=== PATIENT | male | born 1980 | race Caucasian/White ===

== ENCOUNTER → 2017-06-07 | Outpatient (REF) ==
--- NOTE | 2017-06-07 15:44 | Diagnostic Imaging Report ---
INDICATION: Right shoulder injury and pain. TIME OF EXAM: 03:47 p.m. FINDINGS: Three views of the right shoulder were obtained. The glenohumeral and acromioclavicular alignment is normal. The acromiohumeral space is normal. No fracture or dislocation is seen. IMPRESSION: No acute bony abnormality is detected. Dictated by: Dictated on workstation # [id number]
--- NOTE | 2017-06-07 15:49 | Diagnostic Imaging Report ---
CLINICAL INDICATION: Patient was at work and strained his neck. EXAM: X-ray of the cervical spine, 3 views. COMPARISON: None. FINDINGS: There is no acute fracture or dislocation. There is straightening of the mid cervical spine posture. There is no significant prevertebral soft tissue swelling. The intervertebral disc heights are well maintained. The odontoid views are unremarkable. There is no significant degenerative change. IMPRESSION: 1. There is no acute fracture or dislocation. 2. There is straightening of the cervical spine posture. 3. Otherwise, unremarkable x-ray of the cervical spine. Dictated by: Dictated on workstation # [id number]
== END | disposition home or self-care (01) ==
LOC: OCC 14:52
PROVIDERS: ATTEND Family Medicine
CPT/HCPCS: 72040; 73030

== ENCOUNTER → 2017-06-11 | Outpatient (REF) | payer SELFPAY | LOC: RAD 08:01 | PROVIDERS: ATTEND Nurse Practitioner Family | DX: Z53.8 Procedure and treatment not carried out for other reasons (principal); M25.511 Pain in right shoulder ==

== ENCOUNTER 2020-05-07 19:57 | Emergency (ER) | payer SELFPAY ==
[~2020-05-07] VITALS: Ht 175.2 cm; Wt 107.5 kg
[2020-05-07 20:00] VITALS: BP 127/80
--- NOTE | 2020-05-07 20:20 | ED GI ---
General Chief Complaint: Abdominal/GI Problems Stated Complaint: CONSTIPATION History of Present Illness Date Seen by Provider: May 07, 2020 Time Seen by Provider: 20:05 Initial Comments 39-year-old male presents with complaint of constipation for the past 3 days. States he was on pain medication until a week ago when it was discontinued and since then he has not had a good bowel movement. Started MiraLAX 3 days ago, but only took it once, none since then. He has had a few small bowel movements, he states he just feels like he has to go more. Is having some abdominal cramping and gas without significant pain. Denies any nausea vomiting, appetite is normal. Denies fever or chills. Allergies and Home Medications Allergies Coded Allergies: No Known Drug Allergies (Unverified , 05/07/20) Patient Home Medication List Home Medication List Reviewed: Yes Review of Systems Review of Systems Constitutional: No fever, No malaise, No weakness Respiratory: Denies Cough, Denies Shortness of Air Cardiovascular: Denies Chest Pain, Denies Edema, Denies Syncope Gastrointestinal: See HPI; Denies Abdomen Distended, Denies Abdominal Pain; Constipated; Denies Nausea, Denies Poor Appetite, Denies Vomiting Genitourinary: Denies Frequency, Denies Flank Pain, Denies Hematuria Musculoskeletal: No back pain, No joint pain Skin: No change in color, No rash Past Cqldael-Izyqrp-Xhpqrr Hx Patient Social History Recent Foreign Travel: No Contact w/Someone Who Travel: No Recent Hopitalizations: No Physical Abuse: No Sexual Abuse: No Seasonal Allergies Seasonal Allergies: No Past Medical History Surgeries: Yes Orthopedic Respiratory: No Cardiac: No Neurological: No Genitourinary: No Gastrointestinal: No Musculoskeletal: No Endocrine: No HEENT: No Cancer: No Psychosocial: No Integumentary: No Blood Disorders: No Physical Exam Vital Signs Vital Signs - First Documented 05/07/20 20:00 Temp 36.8 Pulse 86 Resp 14 B/P (MAP) 127/80 (96) Pulse Ox 99 O2 Delivery Room Air Capillary Refill : Height/Weight/BMI Height: '" Weight: lbs. oz. kg; BMI Method: General Appearance: WD/WN, no apparent distress Respiratory: chest non-tender, lungs clear Cardiovascular: regular rate, rhythm, no edema Gastrointestinal: normal bowel sounds, non tender, soft, no organomegaly, no pulsatile mass Back: normal inspection, no CVA tenderness Progress/Results/Core Measures Results/Orders My Orders Orders - CANDICE ENRIQUEZ DO Magnesium Citrate Oral Soln (Citrate Of (05/07/20 20:30) Vital Signs/I&O 05/07/20 20:00 Temp 36.8 Pulse 86 Resp 14 B/P (MAP) 127/80 (96) Pulse Ox 99 O2 Delivery Room Air Progress Progress Note : Progress Note Abdominal exam, rather benign, soft without rebound or guarding. Positive bowel sounds all 4 quadrants. Departure Impression Primary Impression: Constipation Qualified Codes: K59.00 - Constipation, unspecified Disposition: HOME, SELF-CARE Condition: Stable Departure-Patient Inst. Decision time for Depature: 20:16 Referrals: [facility] [place] (PCP/Family) Primary Care Physician Patient Instructions: Constipation, Adult (DC), High Fiber Diet Add. Discharge Instructions: Continue taking daily Miralax until you are having soft stool. You may repeat the magnesium citrate in 2 to 3 days if you have not had a large volume of stool. Consider giving yourself an enema in 3 days if not having a large stool. Call or see your doctor next week for any further problems related to constipation. Return to the ER for severe abdominal pain. All discharge instructions reviewed with patient and/or family. Voiced understanding. CANDICE ENRIQUEZ DO May 07, 2020 20:19
[2020-05-07] MEDS ORDERED: MAGNESIUM CITRATE 300 ML BTL PO ONE (20:30)
== END 2020-05-07 20:39 | disposition home or self-care (01) ==
LOC: EDUNIT# 19:57 → ER FS 19:58
DX: K59.00 Constipation, unspecified (principal)
CPT/HCPCS: 99283

== ENCOUNTER 2020-07-18 17:45 | Emergency (ER) | payer SELFPAY ==
[~2020-07-18] VITALS: Ht 177.8 cm; Wt 105.6 kg
[2020-07-18 18:12] LABS: BASOPHILS # (AUTO) 0.1 10^3/uL (0.0-0.1); BASOPHILS % (AUTO) 0 % (0-10); EOSINOPHILS # (AUTO) 0.1 10^3/uL (0.0-0.3); EOSINOPHILS % (AUTO) 1 % (0-10); HEMATOCRIT 48 % (40-54); HEMOGLOBIN 16.5 G/DL (13.3-17.7); LYMPHOCYTES # (AUTO) 2.2 X 10^3 (1.0-4.0); LYMPHOCYTES % (AUTO) 16 % (12-44); MEAN CORPUSCULAR HEMOGLOBIN 30 PG (25-34); MEAN CORPUSCULAR HGB CONC 35 G/DL (32-36); MEAN CORPUSCULAR VOLUME 87 FL (80-99); MEAN PLATELET VOLUME 10.8 FL (7.4-10.4); MONOCYTES # (AUTO) 0.7 X 10^3 (0.0-1.0); MONOCYTES % (AUTO) 5 % (0-12); NEUTROPHILS # (AUTO) 10.4 X 10^3 (1.8-7.8); NEUTROPHILS % (AUTO) 77 % (42-75); PLATELET COUNT 300 10^3/uL (130-400); WHITE BLOOD COUNT 13.6 10^3/uL (4.3-11.0)
[2020-07-18] MEDS ORDERED: KETOROLAC 30 MG/ML VIAL IVP STA (18:12)
[2020-07-18] MEDS ORDERED: NS IV 1000 ML 1,000 ML IV STA (18:12)
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
--- NOTE | 2020-07-18 18:24 | Diagnostic Imaging Report ---
INDICATION: short of breath, chest pain. TECHNIQUE: Single view chest 6:08 PM. CORRELATION STUDY: None FINDINGS: Heart size borderline. Vasculature within normal limits. The lungs are clear with no consolidating infiltrate. There is no significant effusion or pneumothorax. IMPRESSION: 1. Negative for acute abnormality of the chest. Dictated by: Dictated on workstation # [id number]
[2020-07-18 18:25] LABS: PROTHROMBIN TIME PATIENT 13.5 SEC (12.2-14.7)
[2020-07-18 18:33] LABS: ALANINE AMINOTRANSFERASE 14 U/L (0-55); ALBUMIN 4.4 GM/DL (3.2-4.5); ALKALINE PHOSPHATASE 74 U/L (40-136); BILIRUBIN,TOTAL 0.3 MG/DL (0.1-1.0); BUN/CREATININE RATIO 11; CALCIUM 9.5 MG/DL (8.5-10.1); CARBON DIOXIDE 24 MMOL/L (21-32); CHLORIDE 104 MMOL/L (98-107); CREATININE SERUM 0.94 MG/DL (0.60-1.30); GFR ESTIMATED > 60; GLUCOSE 100 MG/DL (70-105); POTASSIUM 3.8 MMOL/L (3.6-5.0); SODIUM 140 MMOL/L (135-145); TOTAL PROTEIN 7.1 GM/DL (6.4-8.2)
[2020-07-18] MEDS ORDERED: LORazepam INJ 2 MG/ML (ATIVAN) VIAL IVP STA (18:54)
[2020-07-18] MEDS ORDERED: methylPREDNISolone 125 MG (Solu-MEDROL) VIAL IVP STA (18:54)
[2020-07-18] MEDS ORDERED: AZITHROMYCIN 250 MG TAB (ZITHROMAX) PO STA (18:54)
[2020-07-18] MEDS ORDERED: AZIT250T12 PO (18:57)
[2020-07-18] MEDS ORDERED: PRD20T PO (18:57)
[2020-07-18] MEDS ORDERED: BACL10TA PO (18:57)
[2020-07-18 19:08] VITALS: BP 134/81
== END 2020-07-18 19:15 | disposition home or self-care (01) ==
LOC: EDUNIT# 17:45 → ER FS 17:47
DX: J22 Unspecified acute lower respiratory infection (principal); F17.200 Nicotine dependence, unspecified, uncomplicated; Z87.01 Personal history of pneumonia (recurrent); Z79.52 Long term (current) use of systemic steroids
CPT/HCPCS: 36415; 71045; 80053; 83605; 84484; 85025; 85610; 85730; 86141; 87040; 93041

== ENCOUNTER 2022-07-27 21:38 | Emergency (ER) | payer SELFPAY ==
[~2022-07-27] VITALS: Ht 180 cm; Wt 90.7 kg
[~2022-07-27 21:38] MED LIST: AZIT250T12 PO; BACL10TA PO; PRD20T PO
--- NOTE | 2022-07-27 21:48 | ED Psychosocial ---
General Chief Complaint: Psych/Social Disorder Stated Complaint: ANXIETY ATTACK History of Present Illness Date Seen by Provider: Jul 27, 2022 Time Seen by Provider: 21:40 Initial Comments 42-year-old male is here with complaints of having a panic/anxiety attack at home, and called EMS immediately. Patient stated that he felt extreme anxiety and has been feeling like this all day since his brother in his sleep last night. Patient has not had anything to eat or drink all day except for a donut in the morning. Patient started having increasing intensity of anxiety associated with a little bit of lightheadedness and nausea. Patient also states that he has been a little bit constipated over the past couple of days and has had hard stools. Denies abdominal pain, fever and chills, respiratory symptoms, chest pain. Allergies and Home Medications Allergies Coded Allergies: No Known Drug Allergies (Unverified , 05/07/20) Patient Home Medication List Home Medication List Reviewed: Yes Azithromycin (Azithromycin) 250 Mg Tablet, 250 MG PO DAILY Prescribed by: GENESIS CARIAS on 07/18/201856 Baclofen (Baclofen) 10 Mg Tablet, 10 MG PO TID PRN for MUSCLE SPASMS Prescribed by: GENESIS CARIAS on 07/18/201856 Prednisone (Prednisone) 20 Mg Tab, 40 MG PO DAILY Prescribed by: GENESIS CARIAS on 07/18/201856 Review of Systems Constitutional: no symptoms reported EENTM: no symptoms reported Respiratory: no symptoms reported Cardiovascular: no symptoms reported Gastrointestinal: constipation, nausea Genitourinary: no symptoms reported Musculoskeletal: no symptoms reported Skin: no symptoms reported Psychiatric/Neurological: See HPI, Anxiety, Emotional Problems Past Tjoeeli-Idkwsh-Bbjhym Hx Seasonal Allergies Seasonal Allergies: No Past Medical History Surgeries: Yes Orthopedic Respiratory: No Cardiac: No Neurological: No Genitourinary: No Gastrointestinal: No Musculoskeletal: No Endocrine: No HEENT: No Cancer: No Psychosocial: No Integumentary: No Blood Disorders: No Physical Exam Vital Signs - First Documented 07/27/22 21:42 Temp 37.8 Pulse 87 Resp 16 B/P (MAP) 134/83 (100) Pulse Ox 100 O2 Delivery Room Air Capillary Refill : Height, Weight, BMI Height: '" Weight: lbs. oz. kg; 33.00 BMI Method: General Appearance: WD/WN, moderate distress HEENT: PERRL/EOMI, normal ENT inspection Neck: full range of motion Respiratory: lungs clear, normal breath sounds Cardiovascular: regular rate, rhythm Gastrointestinal: normal bowel sounds, non tender, soft (No distention) Neurologic/Psychiatric: alert, oriented x 3, other (Patient is having extreme anxiety and feels sad and grieving his brother) Appearance/Memory: appropriate appearance Behavior/Eye Contact: cooperative, good eye contact Thoughts/Hallucinations: normal thought pattern Skin: normal color Lymphatic: no adenopathy Progress/Results/Core Measures Results/Orders My Orders Orders - DUC NEWMAN MD Ondansetron Injection (Zofran Injectio (07/27/22 22:00) Lorazepam Injection (Ativan Injection) (07/27/22 21:57) Docusate Sodium Capsule (Colace Capsule) (07/27/22 22:00) Polyethylene Glycol Powder Pkt (Miralax (07/27/22 22:00) Vital Signs/I&O 07/27/22 21:42 Temp 37.8 Pulse 87 Resp 16 B/P (MAP) 134/83 (100) Pulse Ox 100 O2 Delivery Room Air Progress Progress Note : Progress Note 1. ANXIETY ATTACK/ BEREAVEMENT: - Ativan 0.5mg iv/ Zofran 4mg iv STAT - NS IVF bolus STAT - Pt has not been eating or drinking all day long due to loss of appetite due to a in the family last night, and feels dehydrated as well -Prescription for Ativan 0.5 mg to be taken for an anxiety attack, only 2 tablets prescribed -Follow-up with PCP/psychiatry in the next 7 days 2. CONSTIPATION: - Miralax STAT -Advised patient to increase water intake and advised high-fiber diet -Colace prescription given. No Colace available in the ER -No concerns for obstruction since patient's abdomen is soft, bowel sounds are heard. Departure Impression Primary Impression: Anxiety attack Additional Impression: Constipation Disposition: 01 HOME, SELF-CARE Condition: Improved Departure-Patient Inst. Referrals: [facility] (PCP/Family) Primary Care Physician Patient Instructions: Constipation, Adult (DC), Panic Attack ED, Tips to Help [facility] in Uncertain Times, Panic Disorder Add. Discharge Instructions: -Follow-up with PCP/psychiatry in the next 7 days -Advised patient to increase water intake and advised high-fiber diet - Colace prescription given and to be taken 3 times a day. It is a stool softener. Stop using it once stool is soft - Prescription for Ativan, 2 tablets, to be taken 8 hours apart, only for severe panic attack. All discharge instructions reviewed with patient and/or family. Voiced understanding. Scripts Lorazepam (Ativan) 0.5 Mg Tablet 0.5 MG PO Q8H PRN for ANXIETY for 2 Days, #2 TAB Prov: DUC NEWMAN MD 07/27/22 Docusate Sodium (Colace) 100 Mg Capsule 100 MG PO TID for 7 Days, #21 CAP Prov: DUC NEWMAN MD 07/27/22 DUC NEWMAN MD Jul 27, 2022 21:48
[2022-07-27] MEDS ORDERED: LORazepam INJ 2 MG/ML (ATIVAN) VIAL IVP STA (21:57)
[2022-07-27] MEDS ORDERED: polyethylene glycoL POWDER 17 GM (MIRALAX) PACK PO ONE (22:00)
[2022-07-27] MEDS ORDERED: ONDANSETRON 4 MG/2 ML (SDV) Z0FRAN IVP ONE (22:00)
[2022-07-27] MEDS ORDERED: NS IV 1000 ML 1,000 ML IV SCH (22:00)
[2022-07-27] MEDS ORDERED: DOCUSATE SODIUM 100 MG (COLACE) CAP PO ONE (22:00)
[2022-07-27] MEDS ORDERED: DOCU-143 PO (22:10)
[2022-07-27] MEDS ORDERED: LORA-404 PO (22:10)
[2022-07-27] MEDS ORDERED: SENNA W/DOCUSATE (SENOKOT S) TABLET PO ONE (22:15)
[2022-07-27 22:40] VITALS: BP 134/83
== END 2022-07-27 22:40 | disposition home or self-care (01) ==
LOC: EDUNIT# 21:38 → ER FS 21:40
DX: F41.9 Anxiety disorder, unspecified (principal); K59.00 Constipation, unspecified; Z28.310 Unvaccinated for COVID-19
CPT/HCPCS: 99283

== ENCOUNTER 2022-12-17 17:05 | Emergency (ER) | payer SELFPAY ==
[~2022-12-17] VITALS: Ht 180 cm; Wt 90.7 kg
[~2022-12-17 17:05] MED LIST changes: +DOCU-143 PO; +LORA-404 PO
[2022-12-17] MEDS ORDERED: KETOROLAC INJ 15 MG/ML VIAL IVP STA (17:21)
[2022-12-17] MEDS ORDERED: NS IV 1000 ML 1,000 ML IV STA (17:21)
--- NOTE | 2022-12-17 17:28 | ED Chest Pain ---
General Chief Complaint: Chest Pain Stated Complaint: CHEST PAIN Source: patient, EMS History of Present Illness Date Seen by Provider: Dec 17, 2022 Time Seen by Provider: 17:05 Initial Comments 42-year-old male presenting by EMS with complaints of left-sided sharp chest pain. This started 20 to 30 minutes prior to arrival. He states that he was trying to go to work when the pain started and so he decided to come to the emergency department. However as he was driving here he started feeling worse and was getting numbness and tingling into his left arm so they stopped and called EMS. He states he has had similar pain once and symptoms in the past that was related to anxiety. He also has a tender to palpation area on the left upper chest wall that he thinks may be from a muscle strain since he does heavy lifting at work. He denies having nausea, vomiting, shortness of breath, abdominal pain. He has had no fever or chills. Timing/Duration: 1/2 hour Severity/Quality: moderate, sharp Radiation: no radiation Prior CP/Workup: non-cardiac Modifying Factors: worse with exercise ASA po DIRECTOR OF CONSUMER MARKETING: No NTG SL DIRECTOR OF CONSUMER MARKETING: No Associated Symptoms: No abdominal pain, No back pain, No diaphoresis, No dizziness, No edema, No fatigue, No fever/chills, No headache, No heartburn, No nausea/vomiting, No rash, No shortness of breath, No swelling/lump in chest, No syncope, No weakness Allergies and Home Medications Allergies Coded Allergies: No Known Drug Allergies (Unverified , 05/07/20) Patient Home Medication List Home Medication List Reviewed: Yes Azithromycin (Azithromycin) 250 Mg Tablet, 250 MG PO DAILY Prescribed by: GENESIS CARIAS on 07/18/201856 Baclofen (Baclofen) 10 Mg Tablet, 10 MG PO TID PRN for MUSCLE SPASMS Prescribed by: GENESIS CARIAS on 07/18/201856 Docusate Sodium (Colace) 100 Mg Capsule, 100 MG PO TID Prescribed by: DUC NEWMAN MD on 07/27/222209 Lorazepam (Ativan) 0.5 Mg Tablet, 0.5 MG PO Q8H PRN for ANXIETY Prescribed by: GENESIS CARIAS on 12/17/22 180 Prednisone (Prednisone) 20 Mg Tab, 40 MG PO DAILY Prescribed by: GENESIS CARIAS on 07/18/20 1857 Review of Systems Review of Systems Constitutional: No chills, No fever EENTM: No Symptoms Reported Respiratory: Denies Cough, Denies Shortness of Air Cardiovascular: Chest Pain (Sharp left upper chest wall pain with palpation. He was having sharp pains in his chest and numbness into his left arm.) Gastrointestinal: No Symptoms Reported Genitourinary: No Symptoms Reported Musculoskeletal: no symptoms reported Skin: no symptoms reported Psychiatric/Neurological: Anxiety Past Hjcxrwd-Fpxliv-Dgkzfx Hx Patient Social History Tobacco Use?: No Use of E-Cig and/or Vaping dev: No Substance use?: No Alcohol Use?: No Pt feels they are or have been: No Seasonal Allergies Seasonal Allergies: No Past Medical History Surgery/Hospitalization HX: Anxiety Surgeries: Yes Orthopedic Respiratory: No Cardiac: No Neurological: No Genitourinary: No Gastrointestinal: No Musculoskeletal: No Endocrine: No HEENT: No Cancer: No Psychosocial: No Integumentary: No Blood Disorders: No Physical Exam Vital Signs Vital Signs - First Documented 12/17/22 17:05 Temp 37.0 Pulse 77 Resp 16 B/P (MAP) 124/76 (92) Pulse Ox 100 Capillary Refill : Less Than 3 Seconds Height, Weight, BMI Height: '" Weight: lbs. oz. kg; 27.00 BMI Method: General Appearance: No Apparent Distress, WD/WN Respiratory: No Chest Non Tender (Tender to palpation on the left upper chest wall); Lungs Clear, Normal Breath Sounds, No Accessory Muscle Use, No Respiratory Distress Cardiovascular: Regular Rate, Rhythm, Normal Peripheral Pulses Gastrointestinal: Normal Bowel Sounds, No Pulsatile Mass, Non Tender, Soft Rectal: Deferred Extremity: Normal Capillary Refill, Normal Inspection, No Pedal Edema Neurologic/Psychiatric: Alert, Oriented x3, speech pathology teacher II-XII Norm as Tested Skin: Normal Color, Warm/Dry Progress/Results/Core Measures Results/Orders Lab Results Laboratory Tests Test 12/17/22 17:18 12/17/22 17:47 Range/Units Prothrombin Time 15.6 H 12.2-14.7 SEC INR Comment 1.2 0.8-1.4 Activated Partial Thromboplast Time 21 L 24-35 SEC Sodium Level 137 135-145 MMOL/L Potassium Level 3.5 L 3.6-5.0 MMOL/L Chloride Level 104 98-107 MMOL/L Carbon Dioxide Level 23 21-32 MMOL/L Anion Gap 10 5-14 MMOL/L Blood Urea Nitrogen 11 7-18 MG/DL Creatinine 0.88 0.60-1.30 MG/DL Estimat Glomerular Filtration Rate 110 BUN/Creatinine Ratio 13 Glucose Level 97 70-105 MG/DL Calcium Level 9.7 8.5-10.1 MG/DL Corrected Calcium 9.5 8.5-10.1 MG/DL Magnesium Level 2.0 1.6-2.4 MG/DL Total Bilirubin 0.4 0.1-1.0 MG/DL Aspartate Amino Transf (AST/SGOT) 28 5-34 U/L Alanine Aminotransferase (ALT/SGPT) 11 0-55 U/L Alkaline Phosphatase 48 40-136 U/L Troponin I < 0.30 <0.30 NG/ML Pro-B-Type Natriuretic Peptide < 36.0 <125.0 PG/ML Total Protein 6.4 6.4-8.2 GM/DL Albumin 4.2 3.2-4.5 GM/DL White Blood Count 7.9 4.3-11.0 10^3/uL Red Blood Count 4.39 4.30-5.52 10^6/uL Hemoglobin 13.4 13.3-17.7 g/dL Hematocrit 39 L 40-54 % Mean Corpuscular Volume 88 80-99 fL Mean Corpuscular Hemoglobin 31 25-34 pg Mean Corpuscular Hemoglobin Concent 35 32-36 g/dL Red Cell Distribution Width 12.6 10.0-14.5 % Platelet Count 208 130-400 10^3/uL Mean Platelet Volume 10.3 9.0-12.2 fL Immature Granulocyte % (Auto) 0 % Neutrophils (%) (Auto) 71 42-75 % Lymphocytes (%) (Auto) 22 12-44 % Monocytes (%) (Auto) 6 0-12 % Eosinophils (%) (Auto) 1 0-10 % Basophils (%) (Auto) 0 0-10 % Neutrophils # (Auto) 5.6 1.8-7.8 10^3/uL Lymphocytes # (Auto) 1.7 1.0-4.0 10^3/uL Monocytes # (Auto) 0.5 0.0-1.0 10^3/uL Eosinophils # (Auto) 0.1 0.0-0.3 10^3/uL Basophils # (Auto) 0.0 0.0-0.1 10^3/uL Immature Granulocyte # (Auto) 0.0 0.0-0.1 10^3/uL My Orders Orders - GENESIS CARIAS MD Cbc With Automated Diff (12/17/22 17:21) Magnesium (12/17/22 17:21) Chest 1 View Ap/Pa Only (12/17/22 17:21) Ekg Tracing (12/17/22:) Comprehensive Metabolic Panel (12/17/22:) Protime With Inr (12/17/22:) Partial Thromboplastin Time (12/17/22:) O2 (12/17/22:) Monitor-Rhythm Ecg Trace Only (12/17/22:21) Ed Iv/Invasive Line Start (12/17/22 17:21) Troponin I Fs (12/17/22 17:) Probnp Fs (12/17/22:) Ketorolac Injection (Ketorolac Injection (12/17/22 17:21) Ns Iv 1000 Ml (Sodium Chloride 0.9%) (12/17/22 17:21) Vital Signs/I&O 12/17/22 12/17/22 17:05 18:10 Temp 37.0 37.0 Pulse 77 72 Resp 16 18 B/P (MAP) 124/76 (92) 122/76 Pulse Ox 100 100 Blood Pressure Mean: 92 Progress Progress Note #1: Progress Note Potential diagnosis of anxiety, musculoskeletal chest wall pain, pneumonia, myocardial infarction. Obtain peripheral IV access and send labs for complete blood count, comprehensive metabolic profile, pro time, PTT, troponin, proBNP, magnesium. 1 view chest x-ray to evaluate for pathology in his chest. Normal saline 1 L IV fluid bolus for hydration, Toradol 15 mg IV for his sharp reproducible chest w all pain. Placed on cardiac nuclear monitoring technician and initially interpretation is he has a sinus rhythm with a heart rate in the 80s. Obtain electrocardiogram for further evaluation of his heart rate and rhythm and looking for ischemia. 1714 electrocardiogram shows sinus rhythm without ST elevation or ischemia. Progress Note #2: Progress Note His comprehensive metabolic profile with some hemolysis so the potassium is elevated falsely due to this. Otherwise his overall comprehensive metabolic panel did not show any acute electrolyte abnormality to account for his complaint of chest pain. He reports that his chest pain resolved other than the muscle chest wall pain that has been present for several days. His complete blood count does not show elevated white count for infection or signs of anemia. Reassured patient and counseled on follow-up and return precautions. He advised that he felt like a lot of this was anxiety and had seen improvement when he took the Ativan 0.5 mg up to 3 times a day as prescribed in July from an ER visit. I advised him that I could write for a few of these pills again and that he needed to follow-up with the clinic and they may need to consider additional medicine or other therapies to try and help with his anxiety and stress. Also given a note to be off work until Tuesday as he was stating that he felt like work was a stressor that was contributing to his symptoms. Initial ECG Impression Date: Dec 17, 2022 Initial ECG Impression Time: 17:12 Initial ECG Rate: 69 Initial ECG Rhythm: Normal Sinus Initial ECG Comparisson: Unchanged Comment My personal interpretation and review his electrocardiogram shows a normal sinus rhythm with a heart rate of 69 bpm. CA interval 167 ms. QT interval 338 ms with a QTc interval 358 ms. He has no acute ST elevation. Overall appears similar to tracing from July 18, 2020. Diagnostic Imaging Diagonstic Imaging: Xray Plain Films/CT/US/NM/MRI: chest Comments [facility]. [place], [place] NAME: SHIKHA TINEO MED REC#: [id number] PT STATUS: DEP ER : 1980 PHYSICIAN: GENESIS CARIAS MD ADMIT DATE: 12/17/22/ER FS Signed Date of Exam:12/17/22 CHEST 1 VIEW AP/PA ONLY EXAM: Chest 1 view AP/PA only INDICATION: Left chest pain. COMPARISON: 07/18/2020. FINDINGS: Normal heart size and central pulmonary vascularity. No focal pulmonary opacity. No pleural effusion or pneumothorax. No acute osseous finding. IMPRESSION: No acute cardiopulmonary finding. Dictated by: Dictated on workstation # [id number] Dict: 12/17/22 1745 Trans: 12/17/22 1829 [facility] [id number] Interpreted by: SARAH ROQUE MD Electronically signed by: SARAH ROQUE MD 12/17/22 1829 Reviewed: Reviewed by Me Departure Impression Primary Impression: Chest wall muscle strain Qualified Codes: S29.011A - Strain of muscle and tendon of front wall of thorax, initial encounter Additional Impression: Anxiety Disposition: 01 HOME, SELF-CARE Condition: Stable Departure-Patient Inst. Decision time for Depature: 18:02 Referrals: [facility] [place] Primary Care Physician Patient Instructions: Anxiety, Adult ED, Chest Pain That Is Not Caused by the Heart (DC), Muscle Strain ED Add. Discharge Instructions: Stay well-hydrated and drink plenty of fluids. Try taking the medication for anxiety and stress. You may continue with acetaminophen and/or ibuprofen to help with the chest wall pain. Check back with the clinic about continued concerns. All discharge instructions reviewed with patient and/or family. Voiced understanding. Scripts Lorazepam (Ativan) 0.5 Mg Tablet 0.5 MG PO Q8H PRN for ANXIETY for 2 Days, #2 TAB Prov: GENESIS CARIAS MD 12/17/22 Work/School Note: Work Release Form Date Seen in the Emergency Department: Dec 17, 2022 Return to Work: Dec 20, 2022 Restrictions: No Restrictions GENESIS CARIAS MD Dec 17, 2022 17:28
[2022-12-17 17:36] LABS: INR 1.2 (0.8-1.4); PROTHROMBIN TIME PATIENT 15.6 SEC (12.2-14.7)
[2022-12-17 17:41] LABS: ALANINE AMINOTRANSFERASE 11 U/L (0-55); ALBUMIN 4.2 GM/DL (3.2-4.5); ALKALINE PHOSPHATASE 48 U/L (40-136); BILIRUBIN,TOTAL 0.4 MG/DL (0.1-1.0); BUN/CREATININE RATIO 13; CALCIUM 9.7 MG/DL (8.5-10.1); CARBON DIOXIDE 23 MMOL/L (21-32); CHLORIDE 104 MMOL/L (98-107); CREATININE SERUM 0.88 MG/DL (0.60-1.30); GFR ESTIMATED 110; GLUCOSE 97 MG/DL (70-105); SODIUM 137 MMOL/L (135-145); TOTAL PROTEIN 6.4 GM/DL (6.4-8.2)
--- NOTE | 2022-12-17 17:48 | Diagnostic Imaging Report ---
EXAM: Chest 1 view AP/PA only INDICATION: Left chest pain. COMPARISON: 07/18/2020. FINDINGS: Normal heart size and central pulmonary vascularity. No focal pulmonary opacity. No pleural effusion or pneumothorax. No acute osseous finding. IMPRESSION: No acute cardiopulmonary finding. Dictated by: Dictated on workstation # [id number]
[2022-12-17 17:52] LABS: BASOPHILS % (AUTO) 0 % (0-10); EOSINOPHILS # (AUTO) 0.1 10^3/uL (0.0-0.3); EOSINOPHILS % (AUTO) 1 % (0-10); HEMATOCRIT 39 % (40-54); HEMOGLOBIN 13.4 g/dL (13.3-17.7); LYMPHOCYTES # (AUTO) 1.7 10^3/uL (1.0-4.0); LYMPHOCYTES % (AUTO) 22 % (12-44); MEAN CORPUSCULAR HEMOGLOBIN 31 pg (25-34); MEAN CORPUSCULAR HGB CONC 35 g/dL (32-36); MEAN CORPUSCULAR VOLUME 88 fL (80-99); MEAN PLATELET VOLUME 10.3 fL (9.0-12.2); MONOCYTES # (AUTO) 0.5 10^3/uL (0.0-1.0); MONOCYTES % (AUTO) 6 % (0-12); NEUTROPHILS # (AUTO) 5.6 10^3/uL (1.8-7.8); NEUTROPHILS % (AUTO) 71 % (42-75); PLATELET COUNT 208 10^3/uL (130-400); WHITE BLOOD COUNT 7.9 10^3/uL (4.3-11.0)
[2022-12-17] MEDS ORDERED: LORA-404 PO (18:03)
[2022-12-17 18:05] LABS: POTASSIUM 3.5 MMOL/L (3.6-5.0)
[2022-12-17 18:10] VITALS: BP 122/76
== END 2022-12-17 18:12 | disposition home or self-care (01) ==
LOC: EDUNIT# 17:05 → ER FS 17:07
DX: S29.011A Strain of muscle and tendon of front wall of thorax, initial encounter (principal); F41.9 Anxiety disorder, unspecified; X50.0XXA Overexertion from strenuous movement or load, initial encounter; Y99.0 Civilian activity done for income or pay
CPT/HCPCS: 36415; 71045; 80053; 83735; 83880; 84484; 85025; 85610; 85730; 93005; 93041